=== PATIENT | female | born 1990 | race Caucasian/White ===

== ENCOUNTER → 2016-08-27 | Outpatient (CLI) | payer OTHER ==
[~2016-08-27] MED LIST: ACET-2723 PO; IBUP-1547 PO; PREN-59 PO
--- NOTE | 2016-08-27 10:29 | DI ---
Indication: ITS.REASON: Z34.91 ROUTINE CARE PROCEDURE: US OB COMPLETE < 14 WKS: Age by LMP is 11 weeks and 1 days. This correlates to an TRINA of March 17, 2017. Comparison: None Technique: Transabdominal and transvaginal sonographic pelvic imaging was performed. Findings: Imaging demonstrates a single living intrauterine gestation. A normal appearing yolk sac is identified. The appearance of the embryo and gestation is normal for the first trimester. cardiac activity was detected at a rate of 165 bpm. Both ovaries were identified and appear normal. The left measures 3.3 x 1.6 x 2.1 cm, and the right 3 x 1.7 x 1.9 cm. No abnormal adnexal mass. No free fluid. biometry: [place] rump length 4.41 cm: 11 weeks and 2 days. Impression: Single living intrauterine gestation with estimated gestational age of 11 weeks and 2 days by ultrasound. This correlates to an TRINA of March 16, 2017. .
== END ==
LOC: IMA 09:29
PROVIDERS: ATTEND Family Medicine
DX: Z34.91 Encounter for supervision of normal pregnancy, unspecified, first trimester (principal); Z3A.11 11 weeks gestation of pregnancy; Z36 Encounter for antenatal screening of mother

== ENCOUNTER 2017-03-02 02:03 | Inpatient (IN) ==
[2017-03-02] MEDS ORDERED: CALCIUM CARBONATE Chewable 500mg TABLET PO PRN ×2 (02:23→08:48)
[2017-03-02] MEDS ORDERED: MAG-AL + SIM ORAL LIQUID 30ml PO PRN ×2 (02:23→08:48)
[2017-03-02] MEDS ORDERED: CARBOPROST 250 MCG/ML INJECTION IM PRN (02:23)
[2017-03-02] MEDS ORDERED: METHYLERGONOVINE 0.2 MG/ML INJECTION IM PRN (02:23)
[2017-03-02] MEDS ORDERED: LIDOCAINE 1% (10mg/ml) 2mL INJ PF SDV ID PRN (02:23)
[2017-03-02] MEDS ORDERED: ACETAMINOPHEN 500 MG TABLET PO PRN ×2 (02:23→08:48)
--- OUTSIDE RECORDS SUMMARY | 2017-03-02 02:23 | External Medical Summary | Referral Summary ---
:[address] [place], [facility] Address [address] [place] [address] J[place]EL Rosario [phone] Care Team Providers Name Role Phone Nathanaelcecily Candace Yeny Primary Care Physician Encounter VC Date(s): 05/26/15 - 05/26/[address] [place], [facility] [address] [place] [address] J[place] Rosario [phone] [phone] Discharge Disposition: 01-Home or Self Care Attending Physician: Matthew Le DO Admitting Physician: Matthew Le DO Vital Signs Most recent to oldest [Reference Range]: 1 Temperature Tympanic [36.6-38.1 degC] 37.4 degC (05/26/15 10:15 AM) Peripheral Pulse Rate [60-100 bpm] 108 bpm *HI* (05/26/15 10:15 AM) Blood Pressure [90-140/60-90 mmHg] 128/78 mmHg (05/26/15 10:15 AM) SpO2 98 % (05/26/15 10:15 AM) Problem List No data available for this section Allergies, Adverse Reactions, Alerts No Known Allergies Medications amoxicillin 875 mg oral tablet 875 mg 1 tabs, Oral, BID, X 10 days, # 20 tabs, 0 Refill(s), Pharmacy: [facility] #[id number], 1 tabs Oral BID,x10 days Start Date: 05/26/15 Stop Date: 06/05/15 Status: OrderedBenadryl Allergy mg, Oral, TID, 0 Refill(s) Start Date: 05/26/15 Status: Orderedibuprofen 0 Refill(s) Start Date: 05/26/15 Status: OrderedRobitussin Long-Acting Cough mg, Oral, q6hr, 0 Refill(s) Start Date: 05/26/15 Status: Ordered Results No data available for this section Immunizations No data available for this section Procedures No data available for this section Social History No data available for this section Assessment and Plan Extracted from: Title: Office Visit Note Author: Matthew Le DO Date: 05/26/15 Assessment/Plan Acute maxillary sinusitis 1. Clinical finding consistent with maxillary sinusitis. 2. Amoxicillin twice a day for 10 days. 3. Continue with ibuprofen or Tylenol for discomfort. 4. Continue with Robitussin for the cough. 5. Continue with Benadryl for congestion. Ordered: amoxicillin, 875 mg 1 tabs, Oral, BID, X 10 days, # 20 tabs, 0 Refill(s), Pharmacy: [facility] #[id number], 1 tabs Oral BID,x10 days Office Visit Level 3 New [id number]
[2017-03-02 02:34] VITALS: BMI 33.0
[2017-03-02] MEDS: LR 1,000 ML IV PRN ×2 (02:50→06:43)
[2017-03-02] MEDS ORDERED: D5LR 1,000 ML IV PRN (06:41)
[2017-03-02] MEDS ORDERED: OXYTOCIN DRIP 30 UNIT/500 ML ML IV PRN ×2 (06:41→08:48)
--- NOTE | 2017-03-02 07:42 | Anesthesia Preoperative Report ---
Anesthesia Epidural/Spinal Rec - Date and Time Date: 03/02/17 Procedure: Labor Epidural Plan: Epidural - Vital Signs /Para: P:2 Heart Rate: 144 - Medictaions & Allergies Inpatient Medications: Current Medications Acetaminophen (Tylenol) 500 - 1,000 mg PO Q4H PRN PRN Reason: Pain Al Hydroxide/Mg Hydroxide (Maalox Plus) 30 ml PO Q3H PRN PRN Reason: Indigestion Calcium Carbonate (Tums) 500 - 1,000 mg PO Q2H PRN PRN Reason: Indigestion Carboprost Tromethamine (Hemabate) 250 mcg IM O PRN PRN Reason: .Downtime Lactated Ringer's (Lactated Ringers) 1,000 mls @ 999 mls/hr IV .Q1H1M PRN Last Admin: 03/02/17 06:43 Dose: 999 mls/hr Dextrose/Lactated Ringer's (Dextrose 5%-Lactated Ringers) 1,000 mls @ 125 mls/ hr IV .Q8H PRN PRN Reason: Labor Last Admin: 03/02/17 06:43 Dose: 125 mls/hr Oxytocin (Pitocin Drip) 30 unit in 500 mls @ 2 mls/hr IV .Q24H PRN; Protocol PRN Reason: Induction/Augmentation Last Admin: 03/02/17 06:42 Dose: 2 mls/hr Lidocaine HCl (Xylocaine-Mpf 1% Vial) 0.2 mg ID O PRN PRN Reason: IV Start Methylergonovine Maleate (Methergine) 0.2 mg IM O PRN Misoprostol (Cytotec) 800 mcg AR ONCE PRN Allergies/Adverse Reactions: Allergies Allergy/AdvReac Type Severity Reaction Status Date / Time No Known Drug Allergies Allergy Unknown Verified 02/11/13 00:05 - Home Medications Home Medications: Home Medications Medication Instructions Recorded Confirmed Type Vit 15/Iron Cb/Fa/Dss 1 tab PO #0 02/11/13 History ( Ad Tablet) Acetaminophen [Tylenol Extra 1 - 2 tab PO Q6H PRN #0 tab 02/08/15 History Strength] - Medical History Respiratory: DENIES: Asthma, Bronchitis, Chronic Obstructive Pulmonary Disease (COPD), Dyspnea, Orthopnea, Pulmonary Embolism, Pneumonia, Upper Respiratory Infection, Pulmonary Edema, Sleep Apnea, Tuberculosis, Other Cardiovascular: DENIES: Abnormal EKG, Angina, Arrhythmia, Congestive Heart Failure, Coronary Artery Disease, Heart Murmur, Hypertension, Hypotension, High Cholesterol, Myocardial Infarction, Rheumatic Fever, Valvular Heart Disease, Other Gastrointestional: Reports: Gastroesophageal Reflux Disease (some with ) Renal/Endocrine: Reports: Diabetes Mellitus Type 2 (gestational- diet controlled ) Other History: Reports: Now - Surgical History Reproductive Surgery/Treatment: DENIES: Section Anesthesia Reactions: None Hx Family Anesthesia Reaction: No History of Motion Sickness: No - Social History Smoking Status: Never smoker Substance Use Type: does not use - Pertinent Findings Lab Data: CBC and BMP 03/02/17 02:49 EKG Rhythm: Normal Sinus Rhythm - Physical Exam Respiratory Exam: lungs clear, bilateral breath sounds equal Cardiovascular Exam: regular rate and rhythm, no murmur - Airway Assessment Mallampati Score: II TMD: 3 Fingerbreadths Neck Extension: good Overall Assessment: may be difficult intubation - ASA ASA Score: 2 - Discussion Discussion: Discussed risks/options/alternatives of anesthesia and questions answered. Patient consents. Nursing pain assessment noted. Anesthesia Discussion: spouse Attestation Statement: Prior to the delivery of any anesthetic medication, I examined the patient, developed the plan, obtained the patient's consent and discussed the risk and benefits of the procedure with the patient/guardian.
[2017-03-02] MEDS ORDERED: HYDROCORTISONE 2.5% CREAM 30gm RECTALLY PRN (08:48)
[2017-03-02] MEDS ORDERED: HYDROCODONE/APAP 5mg/325mg TABLET PO PRN (08:48)
[2017-03-02] MEDS ORDERED: SALINE FLUSH 10ml SYRINGE IV PRN (08:48)
[2017-03-02] MEDS ORDERED: DiphenhydrAMINE 25 MG CAPSULE PO PRN (08:48)
[2017-03-02] MEDS ORDERED: OXYTOCIN DRIP 30 UNIT/500 ML ML IV SCH (09:00)
[2017-03-02] MEDS ORDERED: ONDANSETRON 4 MG/2 ML INJECTION IVP PRN (09:30)
[2017-03-02] MEDS ORDERED: ROPIVACAINE 1% 10MG/ML INJ 200 MG, SUFentanil 50 MCG in NS 100 ML EPI PRN ×2 (09:30→15:00)
[2017-03-02] MEDS ORDERED: DiphenhydrAMINE 50 MG/ML INJECTION IVP PRN (09:30)
[2017-03-02] MEDS ORDERED: NALOXONE 0.4 MG/ML INJECTION IVP PRN (09:30)
[2017-03-02 11:38] VITALS: RESP 16
--- NOTE | 2017-03-02 12:26 | Labor and Delivery Note ---
DATE OF DELIVERY: 03/02/2017 This is a delivery note for a patient of Dr. Lipscomb's. Ms. Marti progressed very well and rapidly in first stage of labor. She began to push at the complete and +2 position. She pushed for two contractions delivering the head in the OA presentation. There was a snug nuchal cord x 1 that I was not able to reduce and therefore I doubly clamped it and cut it. The baby did have a bit of shoulder dystocia that was relieved by Jaida maneuver, and with three further pushes baby was delivered in total. This is a liveborn male. Apgars were 3/8/9. He weighed 6 pounds, 9.6 ounces. The placenta subsequently delivered spontaneously, intact. There was a normal configuration and a normal-appearing three-vessel cord. Perineum was intact. Total blood loss was approximately 300 ml. At the time of this dictation mother and baby are doing well. [facility]
[2017-03-02] MEDS: IBUPROFEN 800 MG TABLET PO PRN (16:32)
--- NOTE | 2017-03-02 18:31 | Anesthesia Postoperative Note ---
- Date and Time Date: 03/02/17 Time: 18:27 - Status Patient Participated in Evaluation: Patient Participated in Person Vital Signs: Temperature 98.6 F 03/02/17 16:15 Pulse Rate 76 03/02/17 16:15 Respiratory Rate 16 03/02/17 16:15 Blood Pressure 124/87 03/02/17 16:15 Pulse Oximetry 97 03/02/17 12:30 Respiratory Function: Airway Patent, Regular Respirations Cardiovascular Function: Regular Pulse Mental Status: Alert and Oriented Pain Intensity: 2 Hydration: Taking PO Fluids Complications During Recover: None Apparent Post Anesthesia Care Notes: ambulating without problems. - Follow-Up Instructions Instructions: Per Surgeon
[2017-03-03] MEDS: IBUPROFEN 800 MG TABLET PO PRN ×2 (00:17→08:24)
[2017-03-03] MEDS ORDERED: DOCUSATE CALCIUM 240 MG CAPSULE PO SCH (09:00)
--- NOTE | 2017-03-03 12:42 | OB/GYN Progress Note ---
OB - PN: A/P Vaginal Delivery - Plan day: 1 Plan: routine care, discharge home, follow up 6 weeks - Time Spent With Patient Total time spent is greater than 50% in coordination of care (as documented) at patient's floor/unit and/or counseling patient: less than 15 minutes OB - PN: Subj Patient comments: no complaints, pain well controlled, tolerating diet, flatus present baby status: doing well, nursing well feeding status: exclusively breast feeding OB - PN: Obj Exam Vital signs: Temperature 97.4 F 03/03/17 08:00 Pulse Rate 73 03/03/17 08:00 Respiratory Rate 16 03/03/17 08:00 Blood Pressure 123/81 03/03/17 08:00 Pulse Oximetry 98 03/03/17 08:00 - Constitutional no acute distress - Routine Respiratory Exam Present: CTA bilaterally - Routine Cardiovascular Exam Present: RRR - Routine Abdominal Exam Present: soft, non tender Fundus: Present: firm OB - PN: Obj Data - Labs CBC & Chem 7: 03/02/17 02:49
[2017-03-03 12:52] VITALS: BP 130/84; PULSE 72; TEMP 97.7; O2SAT 100
== END 2017-03-03 14:35 | disposition home or self-care (01) | DRG 775 ==
LOC: MC 02:03
PROVIDERS: ADMIT Obstetrics & Gynecology; ATTEND Family Medicine